=== PATIENT | male | born 1960 | race Caucasian/White ===

== ENCOUNTER → 2018-06-16 | Outpatient (CLI) | payer OTHER ==
[~2018-06-16] MED LIST: IBUP-1427 PO; LISI-729 PO
--- NOTE | 2018-06-16 12:46 | DIAGNOSTIC IMAGING REPORT ---
CHEST 2 VIEWS ROUTINE HISTORY: 58 years-old Male [id number] Rib [id number] acute right flank pain status post fall COMPARISON: Chest CT and chest radiograph 06/10/2018 TECHNIQUE: PA and lateral views of the chest FINDINGS: Cardiomediastinal and hilar silhouettes are within normal limits. No pneumothorax or overt pulmonary edema. Trace right pleural effusion. Acute mildly displaced fractures of the lateral right ninth and 10th ribs redemonstrated. IMPRESSION: Acute mildly displaced lower right rib fractures redemonstrated with trace right pleural effusion. No pneumothorax identified. The above report was generated using voice recognition software. It may contain grammatical, syntax or spelling errors. Electronically signed by: Anjum Marquis M.D. 06/16/2018 12:45 PM Dictated Date/Time: 06/16/2018 12:41 PM
== END | disposition home or self-care (01) ==
LOC: C.RAD 12:04
PROVIDERS: ATTEND Surgery
DX: S22.31XA Fracture of one rib, right side, initial encounter for closed fracture (principal); X58.XXXA Exposure to other specified factors, initial encounter